=== PATIENT | female | born 1975 | race Caucasian/White ===

== ENCOUNTER 2021-02-22 13:00 | Outpatient (REF) | payer MEDICARE, SELFPAY ==
--- NOTE | ~2021-02-22 | MM_ITS ---
EXAMINATION: MM SCREENING DIGITAL BREAST TOMOSYNTHESIS, BILATERAL CLINICAL INFORMATION: Screening. Asymptomatic. The lifetime risk of breast cancer based on the Tyrer-Cuzick Model is 16%. COMPARISON: Mammography: 06/15/2019, 02/10/2014, 01/24/2014 TECHNIQUE: Digital breast tomosynthesis is performed in both the craniocaudal and mediolateral oblique views along with computer-aided detection (CAD). Synthesized 2D images are generated from the tomosynthesis. Additional exaggerated right CC view and bilateral MLO views are provided. FINDINGS: There are scattered areas of fibroglandular density (ACR BI-RADS breast composition Category b). Breast tissue composition borders on predominantly fatty. Background stromal and fibroglandular densities are stable. There is no developing density or interval mass or architectural abnormality. No abnormal calcifications. The axilla and skin contours are unremarkable. MM/MM tomosynthesis screening BI IMPRESSION: No mammographic evidence of malignancy. ASSESSMENT: BI-RADS 1: Negative RECOMMENDATION: Routine annual mammography screening. This patient's information was entered into a reminder system with a target due date for their next mammogram.
== END 2021-02-22 13:01 | disposition home or self-care (01) ==
LOC: HO.MAMMO 13:00
PROVIDERS: PCP General Practice; Visit Provider General Practice
DX: Z12.31 Encounter for screening mammogram for malignant neoplasm of breast (principal)
CPT/HCPCS: 77063; 77067

== ENCOUNTER 2021-08-15 14:22 | Outpatient (REF) | payer MEDICARE, SELFPAY ==
[2021-08-20 04:16] LABS: HPV 16 RNA NOT DETECTED (NOT DETECTED); HPV mRNA E6/E7 rflx Detected (Not Detected)
== END 2021-08-15 14:23 | disposition home or self-care (01) ==
LOC: HO.LAB 14:22
PROVIDERS: Visit Provider Advanced Practice Midwife
DX: Z01.419 Encounter for gynecological examination (general) (routine) without abnormal findings (principal); Z11.51 Encounter for screening for human papillomavirus (HPV); E66.01 Morbid (severe) obesity due to excess calories; Z78.9 Other specified health status
CPT/HCPCS: 87624; 87625; 88142

== ENCOUNTER 2022-02-25 13:42 | Outpatient (REF) | payer MEDICARE, MEDICAID, SELFPAY | END 2022-02-25 13:43 | disposition home or self-care (01) | LOC: HO.LNP 13:42 | PROVIDERS: Visit Provider Obstetrics & Gynecology | DX: R87.810 Cervical high risk human papillomavirus (HPV) DNA test positive (principal); R87.610 Atypical squamous cells of undetermined significance on cytologic smear of cervix (ASC-US) | CPT/HCPCS: 57454; 88300; 88305; 88342; 88360 ==

== ENCOUNTER → 2022-03-12 13:11 | Outpatient (BNVA) | payer MEDICARE, SELFPAY | PROVIDERS: PCP General Practice; Visit Provider Obstetrics & Gynecology | DX: R87.610 Atypical squamous cells of undetermined significance on cytologic smear of cervix (ASC-US) (principal); R87.810 Cervical high risk human papillomavirus (HPV) DNA test positive | CPT/HCPCS: Q3014 ==

== ENCOUNTER 2022-05-13 11:15 | Outpatient (REF) | payer MEDICARE, MEDICAID, SELFPAY | END 2022-05-13 11:16 | disposition home or self-care (01) | LOC: HO.LNP 11:15 | PROVIDERS: PCP General Practice; Visit Provider Obstetrics & Gynecology | DX: R87.610 Atypical squamous cells of undetermined significance on cytologic smear of cervix (ASC-US) (principal); R87.810 Cervical high risk human papillomavirus (HPV) DNA test positive; Z32.02 Encounter for pregnancy test, result negative | CPT/HCPCS: 57455; 81025; 88305; 99212 ==

== ENCOUNTER → 2022-05-27 12:04 | Outpatient (BNVA) | payer MEDICARE, MEDICAID, SELFPAY | PROVIDERS: PCP General Practice; Visit Provider Obstetrics & Gynecology | DX: R87.610 Atypical squamous cells of undetermined significance on cytologic smear of cervix (ASC-US) (principal); R87.810 Cervical high risk human papillomavirus (HPV) DNA test positive | CPT/HCPCS: Q3014 ==